=== PATIENT | female | born 1985 | race Caucasian/White ===

== ENCOUNTER 2022-07-25 21:54 | Emergency (ER) | payer SELFPAY ==
[2022-07-25 21:56] VITALS: BP 120/65; PULSE 108; RESP 16; TEMP 36.9; O2SAT 98
--- NOTE | 2022-07-25 22:10 | ED_ITS ---
HPI - General Adult General: Chief complaint: General Medical Stated complaint: sore throat Time Seen by Provider: 07/25/22 21:56 History of Present Illness: Patient is a 36-year-old female comes the ED with sore throat. Symptoms started today. She was around her nephew who was rece ntly diagnosed with strep throat. Denies any fever, chills, nasal congestion or drainage, cough, nausea/vomiting. Associated symptoms: Deny chest pain, dyspnea, headache(s), nausea, rash, palpitations or vomiting Review of Systems Const: Denies: fever(s), chills or fatigue Eyes: Denies: change in vision or eye discomfort ENMT: Reports: throat pain; Denies: odynophagia, nasal discharge or nasal congestion Card: Denies: chest pain, palpitations, edema, swelling of feet/ankles, dyspnea on exertion or orthopnea Resp: Denies: dyspnea, productive cough or non-productive cough GI: Denies: abdominal pain, nausea, vomiting, diarrhea, constipation or hematochezia : Denies: flank pain, dysuria or hematuria Musc: Denies: neck pain, back pain or extremity swelling Skin/Breast: Denies: rash or new lesions Neuro: Denies: headache(s), numbness in extremities or weakness in extremities PFS ED PFSH: Medical History No pertinent family history Surgical History No pertinent past surgical history Physical Exam Const: COMMON NORMALS: no acute distress, patient oriented x3, healthy appearing and alert HENMT: COMMON NORMALS: normocephalic HEAD & SCALP: normocephalic MOUTH: Normal oral and palatal mucosa present THROAT: uvula midline and posterior oropharynx abnormal erythema and exudates Neck/C-Spine: COMMON NORMALS: supple GENERAL: Yes normal visual inspection Resp: COMMON NORMALS: normal respiratory effort, No retractions, No use of accessory muscles and clear to auscultation bilaterally AUSCULTATION: clear to auscultation bilaterally Cardio: COMMON NORMALS: regular rate, regular rhythm, S1 normal heart sound present, S2 normal heart sound present, No gallops present (Cardio), No clicks present (Cardio), No murmurs present (Cardio) and Peripheral pulses 2+ throughout RATE: regular rate RHYTHM: regular rhythm HEART SOUNDS: S1 normal heart sound present and S2 normal heart sound present PERIPHERAL PULSES: Peripheral pulses 2+ throughout GI: COMMON NORMALS: Normal to inspection, nondistended, normoactive bowel sounds present, Soft to palpation, non-tender and no masses PALPATION: Yes Soft to palpation : COMMON NORMALS: Yes no CVA tenderness BLADDER/KIDNEY EXAM: Yes no CVA tenderness Back/Pelvis: COMMON NORMALS: no CVA tenderness Extremity: COMMON NORMALS: normal to inspection Neuro: COMMON NORMALS: patient oriented x3 SENSORIUM/ORIENTATION: Yes alert GAIT: Yes Normal gait present Skin: GENERAL SKIN EXAM: dry skin Course Vital Signs: Vital signs: Vital Signs Temperature 98.4 F 07/25/22 21:56 Pulse Rate 108 H 07/25/22 21:56 Respiratory Rate 16 07/25/22 21:56 Blood Pressure 120/65 07/25/22 21:56 Pulse Oximetry 98 07/25/22 21:56 Oxygen Delivery Me thod 07/25/22 21:56 MDM - General Adult Medical Decision Making Patient is a 36-year-old female comes to the ED with sore throat. Patient had a family member that she was recently exposed to that had strep throat. Denies any other symptoms. Vitals are stable. Exam of patient shows posterior oropharynx erythema and exudates noted. Strep test was negative. Given patient's recent exposure to strep and her clinical appearance I am going to treat her with an antibiotic. She was given a dose of Augmentin here in the ED. She is diagnosed with strep throat and discharged home with a prescription for antibiotic. Told to follow-up with PCP in the next week for reevaluation. Patient understood and agreed with plan. Lab Data I reviewed the patient's lab results. Laboratory Results Group A Strep Rapid Negative (Negative) 07/25/22 22:04 Discharge Plan Discharge Patient Disposition: Home Clinical Impression: Strep pharyngitis Condition: Stable Prescriptions: New Augmentin 500-125 mg tablet 1 tab PO BID 10 Days Qty: 20 0RF Discharge Orders: Discharge ED (Routine); Ordered 07/25/22 Ordered By: Keenan eVlez Discharge Diet: Regular Discharge Activity: Increase activity as tolerated Patient Instructions: Strep Throat (ED) Activity Restrictions/Additional Instructions: Follow-up with medical provider as directed. Take medications as prescribed. Return to the ER or your medical provider if condition worsens. Please read and understand discharge instructions. Thank you for choosing [facility] for your healthcare needs today. Please realize this is an emergency room and that we are providing you with a medical screening exam and this may not be complete and all inclusive of all the testing and or work up that you may need to determine your ailment or severity of your illness. It is very important that you follow up as instructed or that you return to the Emergency Department should you have concerns or if your condition changes or worsens in any way. Coding Level of Care Code ED Channel Machine Operator for Geeta Fwshyam Exam Comprehensive
[2022-07-25 22:27] LABS: Rapid Strep A Test Negative (Negative)
[2022-07-25] MEDS: amoxicillin-clav 500-125 mg Tablet 1 TAB PO (22:32)
[2022-07-25 22:38] VITALS: PULSE 102; RESP 16; O2SAT 98
== END 2022-07-25 22:36 | disposition home or self-care (01) ==
PROVIDERS: Emergency Provider Physician Assistant
DX: J02.0 Streptococcal pharyngitis (principal)
CPT/HCPCS: 87081; 87880; 99283

== ENCOUNTER 2023-04-06 03:49 | Emergency (ER) | payer OTHER, SELFPAY ==
[2023-04-06 03:59] VITALS: BP 135/75; PULSE 116; RESP 16; TEMP 36.8; O2SAT 97; BMI 24.0
--- NOTE | 2023-04-06 04:04 | W.ED.ANIMALB ---
HPI - Animal Bite General: Chief Complaint: Animal Bite Stated Complaint: spider bite Time Seen by Provider: 04/06/23 03:58 History of Present Illness: 37-year-old female who felt a sting while putting pants on yesterday. Area of redness has spread according to her. She has ran a fever at home, which is improved with medication. No vomiting. No shortness of breath. Associated symptoms: Reports chills and fever(s); Deny headache(s) Review of Systems Const: Reports: fever(s), chills and body aches Eyes: Denies: change in vision ENMT: Denies: throat pain or swelling of lips/tongue Card: Denies: chest pain Resp: Denies: dyspnea GI: Denies: abdominal pain, nausea or vomiting Musc: Denies: neck pain Skin/Breast: Reports: rash and erythema Neuro: Denies: headache(s) PFS ED PFSH: Medical History No pertinent family history Surgical History No pertinent past surgical history Physical Exam Const: COMMON NORMALS: no acute distress GENERAL APPEARANCE: cooperative; not ill appearing and not frail appearing HENMT: COMMON NORMALS: normocephalic, atraumatic and Normal external nose present HEAD & SCALP: normocephalic and atraumatic FACE & SINUS: normal facial exam and face symmetric NOSE: Normal external nose present Eye: COMMON NORMALS: Equal, round and reactive pupils present and EOMs intact bilaterally PUPIL: Yes Equal, round and reactive pupils present Neck/C-Spine: GENERAL: Yes trachea midline Chest: CHEST: Yes Symmetrical chest wall rise Resp: COMMON NORMALS: normal respiratory effort, No retractions, No use of accessory muscles and clear to auscultation bilaterally AUSCULTATION: clear to auscultation bilaterally Cardio: COMMON NORMALS: regular rate and regular rhythm RATE: regular rate RHYTHM: regular rhythm GI: COMMON NORMALS: Normal to inspection, nondistended, normoactive bowel sounds present Extremity: COMMON NORMALS: no pedal edema Neuro: DESMOND COMA SCALE: document GCS findings Desmond coma scale eye opening: Spontaneous Desmond coma scale verbal response: Orientated Desmond coma scale motor response: Obey commands Desmond coma scale total score: 15 SENSORY EXAM: Yes extremities (intact) Psych: COMMON NORMALS: speech normal SPEECH: Yes normal speech Skin: NARRATIVE SKIN EXAM: Single puncture wound to the right posterior thigh with surrounding beefy erythematous raised area that appears cellulitic. No streaking. No drainage. No fluctuant mass Course Vital Signs: Vital signs: Vital Signs Temperature 98.3 F 04/06/23 03:59 Pulse Rate 116 H 04/06/23 03:59 Respiratory Rate 16 04/06/23 03:59 Blood Pressure 135/75 04/06/23 03:59 Pulse Oximetry 97 04/06/23 03:59 Oxygen Delivery Me thod Room Air 04/06/23 03:59 MDM - Animal Bite Medical Decision Making Cellulitic puncture wound to the right posterior thigh. No drainable abscess on exam. She will be placed on antibiotics. In case this is an envenomation, she will be placed on steroids as well. Close outpatient follow-up. No radiology studies performed this visit Discharge Plan Discharge Patient Disposition: Home Clinical Impression: Insect bite, Cellulitis Condition: Stable Prescriptions: New Bactrim DS 800-160 mg tablet 1 tab PO BID Qty: 20 0RF Medrol (Cheikh) 4 mg tablets,dose pack See Rx Instructions PO .COMPLEX Qty: 21 0RF Rx Instructions: orally per package directions Discharge Orders: Discharge ED (Routine); Ordered 04/06/23 Ordered By: Arnaldo Knapp Patient Instructions: Insect Bite or Sting (ED), Brown Recluse Spider Bite (ED), Pain Management Activity Restrictions/Additional Instructions: Return for fever greater than 100 despite 2-3 more doses of antibiotics, worsening spreading redness despite 2-3 more doses of antibiotics, drainage, any other concerning symptoms. Follow-up with your doctor this coming week Coding Level of Care Code ED Brake Repair Mechanic for Geeta Jacome
[2023-04-06] MEDS: sulfamethoxazole-trimeth DS 160-800 mg Tablet 2 TAB PO (04:22)
[2023-04-06] MEDS: predniSONE 20 mg Tablet 40 MG PO (04:23)
[2023-04-06 04:33] VITALS: BP 109/75; PULSE 93; RESP 16; O2SAT 100
== END 2023-04-06 04:35 | disposition home or self-care (01) ==
PROVIDERS: Emergency Provider Emergency Medicine
DX: S70.361A Insect bite (nonvenomous), right thigh, initial encounter (principal); W57.XXXA Bitten or stung by nonvenomous insect and other nonvenomous arthropods, initial encounter; L03.115 Cellulitis of right lower limb
CPT/HCPCS: 99283; J7512

== ENCOUNTER → 2024-09-06 19:06 | Outpatient (BNVA) | payer OTHER, SELFPAY | PROVIDERS: Visit Provider Family Medicine | DX: Z20.2 Contact with and (suspected) exposure to infections with a predominantly sexual mode of transmission (principal); N89.8 Other specified noninflammatory disorders of vagina | CPT/HCPCS: 87491; 87591; 87661 ==